=== PATIENT | female | born 1965 | race Native Hawaiian/Other Pacific Islander ===

== ENCOUNTER 2018-11-28 13:27 | Outpatient (CLI) | payer BC | END 2018-11-28 23:59 | disposition home or self-care (01) | LOC: LABW 13:27 | DX: K64.0 First degree hemorrhoids (principal) | CPT/HCPCS: 82272 ==

== ENCOUNTER 2019-01-02 09:38 | Outpatient (CLI) | payer BC ==
[2019-01-02 10:35] LABS: PLATELET COUNT 239 K/uL (152-353)
[2019-01-02 11:00] LABS: POTASSIUM 4.2 mmol/L (3.6-5.2)
== END 2019-01-02 19:50 | disposition home or self-care (01) ==
LOC: LABW 09:38
PROVIDERS: Internal Medicine
DX: R10.11 Right upper quadrant pain (principal); N64.59 Other signs and symptoms in breast
CPT/HCPCS: 36415; 80053; 85027; G0279

== ENCOUNTER 2019-09-24 09:33 | Outpatient (CLI) | payer BC | END 2019-09-24 19:16 | disposition home or self-care (01) | LOC: CT 09:33 | DX: R10.11 Right upper quadrant pain (principal) | CPT/HCPCS: 36415; 82565; 84520; Q9963 ==

== ENCOUNTER 2020-11-22 09:50 | Outpatient (CLI) | payer BC | END 2020-11-22 21:43 | disposition home or self-care (01) | LOC: MAMMO 09:50 | PROVIDERS: ATTEND Nurse Practitioner | DX: N64.4 Mastodynia (principal) | CPT/HCPCS: G0279 ==

== ENCOUNTER 2020-11-23 11:05 | Outpatient (CLI) | payer BC | END 2020-11-23 19:24 | disposition home or self-care (01) | LOC: US 11:05 | PROVIDERS: ATTEND Nurse Practitioner | DX: N64.4 Mastodynia (principal) ==

== ENCOUNTER 2022-01-24 09:32 | Outpatient (CLI) | payer BC | END 2022-01-24 19:31 | disposition home or self-care (01) | LOC: RAD 09:32 | PROVIDERS: ATTEND Nurse Practitioner Family | DX: R10.11 Right upper quadrant pain (principal) ==